=== PATIENT | female | born 1930 | race Caucasian/White ===

== ENCOUNTER → 2017-03-06 | Emergency (ER) | payer OTHER | END | disposition left against medical advice (07) | LOC: ER 20:13 | DX: J00 Acute nasopharyngitis [common cold] (principal); R09.81 Nasal congestion; Z53.21 Procedure and treatment not carried out due to patient leaving prior to being seen by health care provider ==

== ENCOUNTER 2018-01-20 21:44 | Emergency (ER) | payer OTHER ==
[~2018-01-20] VITALS: Ht 165.1 cm; Wt 63.5 kg
[2018-01-21 01:07] LABS: Urine Bacteria FEW /hpf (None Seen); Urine Blood TRACE /uL (Negative); Urine Hyaline Cast FEW /lpf (0 - 2); Urine WBC 1 /hpf (0 - 5)
[2018-01-21 01:31] LABS: Basophils # (auto) 0 uL; Basophils % (auto) 0.5 % (0.0-2.0); Eosinophils # (auto) 0 uL; Eosinophils % (auto) 0.5 % (0.0-7.0); Hematocrit 34.4 % (36.0-46.0); Hemoglobin 11.6 g/dL (12.2-16.2); Lymphocytes # (auto) 0.9 uL; Lymphocytes % (auto) 14.1 % (10.0-50.0); Mean Corpuscular Hemoglobin 31.9 pg (28.0-32.0); Mean Corpuscular Hgb Conc. 33.7 g/dL (32.0-36.0); Mean Corpuscular Volume 94.7 fL (80.0-100.0); Monocytes # (auto) 0.5 uL; Monocytes % (auto) 7.7 % (0.0-12.0); Neutrophils # (auto) 5.1 uL; Neutrophils % (auto) 77.2 % (37.0-80.0); Platelet Count (auto) 164 10^3/uL (140-450); Red Blood Cells 3.63 10^6/uL (4.0-5.20); Red Cell Distribution Width 14.5 % (11.8-14.3); White Blood Cell 6.7 10^3/uL (4.4-10.8)
[2018-01-21 01:52] LABS: Albumin 3.1 g/dL (3.4-5.0); BUN/Creatinine Ratio 31.8; Calcium 8.2 mg/dL (8.5-10.1); Potassium 3.3 mmol/L (3.5-5.1)
[2018-01-21 01:55] LABS: Bilirubin, Total 0.4 mg/dL (0.2-1.0); Total Protein 6.8 g/dL (6.4-8.2)
[2018-01-21 04:10] VITALS: BP 147/71
[2018-01-21] MEDS ORDERED: POTASSIUM CHL 20 Meq TABLET PO ONE (06:00)
[2018-01-21 06:12] LABS: INR 0.92 (0.9-1.15); Partial Thromboplastin Time 28.7 sec (23.78-33.04); Prothrombin Time 9.9 sec (9.27-12.13)
== END 2018-01-21 06:40 | disposition home or self-care (01) ==
LOC: EDBD 21:44 → ER 21:44
DX: E87.6 Hypokalemia (principal); E86.0 Dehydration; I10 Essential (primary) hypertension; I48.91 Unspecified atrial fibrillation
CPT/HCPCS: 36415; 71045; 80053; 81001; 83880; 84443; 84484; 85025; 85610; 85730; 93005

== ENCOUNTER 2018-08-27 10:30 | Inpatient (IN) | payer OTHER | END 2018-08-30 20:46 | disposition home health service (06) | LOC: TELE-CENTR 08-30 16:38 → ER 10:30 → OVERFLOW 10:31 → ICU WEST 15:13 | DX: I47.1 Supraventricular tachycardia (principal); I24.9 Acute ischemic heart disease, unspecified; I16.9 Hypertensive crisis, unspecified; N39.0 Urinary tract infection, site not specified; E78.00 Pure hypercholesterolemia, unspecified; I48.91 Unspecified atrial fibrillation; I20.9 Angina pectoris, unspecified ==